=== PATIENT | female | born 1995 | race Caucasian/White ===

== ENCOUNTER 2016-12-15 13:31 | Observation (INO) | payer MEDICAID, OTHER ==
[2016-12-15] MEDS ORDERED: Lactated Ringers 1,000 ML IV ONE (14:17)
[2016-12-15] MEDS ORDERED: BRETHINE 1 MG/ML SQ ONE (14:18)
[2016-12-15 18:56] VITALS: BP 153/71; PULSE 112
--- NOTE | 2016-12-16 09:07 | XRAY ---
Indication: Difficulty obtaining heart tones. 2-dimensional OB ultrasound performed. Comparison: November 01, 2016. Again there is a single viable intrauterine currently in cephalic presentation. Normal four-chamber heart with heart rate 146 bpm. heart rate demonstrates intermittent missed beat. Normal three-vessel cord and cord insertion. Visualized head, spine, stomach, kidneys, and bladder again appear unremarkable. Placenta is again posterior without abruption/previa. Cervical length measures 4.1 cm. BPD measures 7.09 cm corresponding to 28 weeks 3 days. HC measures 27.32 cm corresponding to 29 weeks 6 days. AC measures 24.10 cm corresponding to 28 weeks 3 days. FL measures 5.66 cm corresponding to 29 weeks 5 days. PRMEA is 15.2 cm. Impression: Again single viable intrauterine with mean gestational age of 29 weeks 1 day. Normal progression in . heart rate is 146 bpm with intermittent missed beat. Comment: Preliminary report was given to the ordering clinician.
--- NOTE | 2016-12-16 09:08 | XRAY ---
Indication: Difficulty obtaining heart tones. arrhythmia. well-being. Two-dimensional ultrasound biophysical profile study was performed. Comparison: None There is a single intrauterine viable with heart rate 146 bpm. 4 quadrant PREMA is 15.2 cm. Largest pocket 6 cm. 2 points given for breathing movements, movements, tone, and qualitative amniotic fluid volume. Impression: Total biophysical profile score is 8 out of 8. Comment: Preliminary report was given.
== END 2016-12-15 18:55 | disposition home or self-care (01) ==
LOC: OB 13:31
PROVIDERS: ADMIT Family Medicine; ATTEND Family Medicine
DX: Z34.83 Encounter for supervision of other normal pregnancy, third trimester (principal)
CPT/HCPCS: 76805; 76818; 82731; 96372; G0378

== ENCOUNTER 2016-12-26 16:48 | Observation (INO) | payer MEDICAID, OTHER ==
[2016-12-26 18:04] LABS: COMPLETE URINE MICROSCOPIC? YES; Collection Type CLEAN CATCH
[2016-12-26 18:05] LABS: Bacteria FEW /HPF (NEGATIVE); Epithelial Cells MANY /HPF (FEW); WBC 15-25 /HPF (0-5)
[2016-12-26] MEDS ORDERED: Lactated Ringers 1,000 ML IV ONE ×2 (18:17→18:23)
[2016-12-26] MEDS ORDERED: ROCEPHIN 1 Gm-D5w 50 ml Bag** 1 G/50 ML IVPB IV SCH (18:30)
[2016-12-26 19:42] LABS: Mean Cell Volume 86.3 fl (78-100); Mean Platelet Volume 10.7 fl (6-9.5); Platelet Count 334 K/mm3 (150-450); Red Blood Count 3.79 M/mm3 (4.1-5.4); Red Cell Distribution Width 14.7 % (11.5-14.0); White Blood Count 14.7 K/mm3 (4.0-10.5)
[2016-12-26 19:43] LABS: Mean Corpuscular Hemoglobin 27.9 pg (26-32)
[2016-12-26 19:44] VITALS: BP 117/52; PULSE 90
[2016-12-26 20:01] LABS: ALBUMIN 2.6 g/dL (3.4-5.0); ALKALINE PHOSPHATASE 177 U/L (46-116); ANION GAP 15.4 MEQ/L (5-15); BILIRUBIN,TOTAL 0.5 mg/dL (0.2-1.0); BLOOD UREA NITROGEN 8 mg/dL (9-20); CHLORIDE 101 mEq/L (98-107); Carbon Dioxide 24.8 mEq/L (21-32); Glucose 78 MG/DL (70-110); Potassium 3.4 mEq/L (3.5-5.1); SGOT/AST 15 U/L (15-37); SODIUM 138 mEq/L (136-145); Total Protein 7.4 gm/dL (6.4-8.2)
[2016-12-26 20:13] LABS: SGPT/ALT 12 U/L (12-78)
[2016-12-26 21:10] LABS: Total Cells Counted 100
[2016-12-26 21:11] LABS: ANISOCYTOSIS 1+; Platelet Estimate NORMAL (NORMAL)
== END 2016-12-26 21:05 | disposition home or self-care (01) ==
LOC: MED SURG 16:48
PROVIDERS: ADMIT Family Medicine; ATTEND Family Medicine
DX: Z34.83 Encounter for supervision of other normal pregnancy, third trimester (principal)
CPT/HCPCS: 36415; 80053; 80307; 81000; 85025; 87077; 87086; 87186; G0378; J0696

== ENCOUNTER 2017-01-23 14:40 | Observation (INO) | payer OTHER, MEDICAID ==
[2017-01-23] MEDS ORDERED: OMNIPEN 2 GM IV ONE ×2 (14:57→15:40)
[2017-01-23 15:18] VITALS: BP 145/83; PULSE 108
[2017-01-23] MEDS ORDERED: OMNIPEN 2 GM / NACL 100ML 100 ML IV ONE (15:39)
[2017-01-23] MEDS ORDERED: ERYTHROMYCIN LACTOBIONATE IV SCH (16:00)
[2017-01-23] MEDS ORDERED: SODIUM CHLORIDE IV SCH (16:00)
[2017-01-23] MEDS ORDERED: Celestone Soluspan 6MG/ML IM ONE (16:17)
--- NOTE | 2017-01-23 16:28 | XRAY ---
Indication: labor. Evaluate lie and PREMA. Limited OB ultrasound demonstrates single intrauterine in breech presentation with heart rate 156 bpm. Four-quadrant PREMA is 2.7 cm, previously 15.2 cm on December 15, 2016.
[2017-01-23 17:06] LABS: BASOPHIL % 0.2 % (0.0-0.4); Eosinophil % 0.5 % (0.00-5.0); Granulocytes % 78.5 % (36.0-66.0); Lymphocytes % 14.7 % (24.0-44.0); Mean Cell Volume 86.3 fl (78-100); Mean Corpuscular Hemoglobin 27.8 pg (26-32); Mean Platelet Volume 11.1 fl (6-9.5); Monocytes % 6.1 % (0.0-12.0); Platelet Count 349 K/mm3 (150-450); Red Blood Count 3.88 M/mm3 (4.1-5.4); Red Cell Distribution Width 14.9 % (11.5-14.0); White Blood Count 12.1 K/mm3 (4.0-10.5)
[2017-01-23 17:47] LABS: ALBUMIN 2.3 g/dL (3.4-5.0); ALKALINE PHOSPHATASE 218 U/L (46-116); ANION GAP 16.2 MEQ/L (5-15); BILIRUBIN,TOTAL 0.2 mg/dL (0.2-1.0); BLOOD UREA NITROGEN 11 mg/dL (9-20); CHLORIDE 104 mEq/L (98-107); Carbon Dioxide 22.9 mEq/L (21-32); Glucose 94 MG/DL (70-110); Potassium 3.9 mEq/L (3.5-5.1); SGOT/AST 12 U/L (15-37); SGPT/ALT 9 U/L (12-78); SODIUM 139 mEq/L (136-145); Total Protein 7.2 gm/dL (6.4-8.2)
== END 2017-01-23 17:45 | disposition home or self-care (01) ==
LOC: OB 14:40
PROVIDERS: ADMIT Family Medicine; ATTEND Family Medicine
DX: Z34.83 Encounter for supervision of other normal pregnancy, third trimester (principal)
CPT/HCPCS: 36415; 76815; 80053; 80307; 85025; 96372; G0378; J0290; J0702

== ENCOUNTER 2017-04-14 18:43 | Emergency (ER) | payer OTHER, MEDICAID ==
[2017-04-14] MEDS ORDERED: TORAdol 30 mg Injection IM ONE (19:09)
[2017-04-14] MEDS ORDERED: Cyclobenzaprine 10 MG PO ONE (19:10)
[2017-04-14] MEDS ORDERED: TORAdol 30 mg Injection ONE (19:12)
[2017-04-14] MEDS ORDERED: Cyclobenzaprine 10 MG ONE (19:12)
--- NOTE | 2017-04-14 19:15 | ERPHSYRPT ---
- History of Present Illness Time Seen by Provider: 04/14/17 19:10 Source: patient Exam Limitations: no limitations Physician History: 21 y/o female comes to the ER with complaints of lower back pain that started today after trying to lift her daughter. Since then patient has been having severe lower back pain with stiffness. Pt describes the pain as sharp, constant , worse with movement, 9/10 and not relieved by tylenol. Pt denies any leg weakness or bowel or urinary incontinence. Timing/Duration: today Method of Injury: bending Quality: sharp Back Pain Location: lumbar spine Severity of Pain-Max: severe Severity of Pain-Current: severe Modifying Factors: Improves With: nothing Allergies/Adverse Reactions: No Known Drug Allergies Allergy (Verified 04/14/17 19:21) Home Medications: Control 04/14/17 [History] Hx Tetanus, Diphtheria Vaccination/Date Given: Yes (UP TO DATE) Hx Influenza Vaccination/Date Given: No Hx Pneumococcal Vaccination/Date Given: No - Review of Systems Constitutional: No Fever, No Chills Eyes: No Symptoms Ears, Nose, & Throat: No Symptoms Respiratory: No Cough, No Dyspnea Cardiac: No Chest Pain, No Edema, No Syncope Abdominal/Gastrointestinal: No Abdominal Pain, No Nausea, No Vomiting, No Diarrhea Genitourinary Symptoms: No Dysuria Musculoskeletal: Back Pain, No Neck Pain Skin: No Rash Neurological: No Dizziness, No Focal Weakness, No Sensory Changes Psychological: No Symptoms Endocrine: No Symptoms All Other Systems: Reviewed and Negative - Past Medical History Pertinent Past Medical History: No Neurological History: No Pertinent History Cardiac History: No Pertinent History Respiratory History: No Pertinent History Musculoskeletal History: No Pertinent History GI Medical History: No Pertinent History History: Other Female Reproductive Disorders: Other Other Medical History: double uterus - Past Surgical History Past Surgical History: Yes Musculoskeletal: Orthopedic Surgery Female Surgical History: Other Other Surgical History: vaginal surgery-septum, knee surgery - Social History Smoking Status: Never smoker Exposure to second hand smoke: No Drug Use: none Patient Lives Alone: No - Female History Hx Now: No - Nursing Vital Signs Nursing Vital Signs: Initial Vital Signs Temperature 97.8 F 04/14/17 19:11 Pulse Rate 88 04/14/17 19:11 Respiratory Rate 18 04/14/17 19:11 Blood Pressure 131/72 04/14/17 19:11 O2 Sat by Pulse Oximetry 100 04/14/17 19:11 Pain Scale Pain Intensity [Lower Back] 9 Pain Intensity 7 - Physical Exam General Appearance: moderate distress, alert Eye Exam: PERRL/EOMI, eyes nml inspection Neck Exam: normal inspection, non-tender, supple, full range of motion, No meningismus, No midline tenderness Respiratory Exam: normal breath sounds, lungs clear, No respiratory distress Cardiovascular Exam: regular rate/rhythm, normal heart sounds Gastrointestinal Exam: soft, No tenderness, No mass Back Exam: decreased range of motion, muscle spasm, No normal range of motion Extremity Exam: normal inspection, normal range of motion, No calf tenderness, No pedal edema Neurologic Exam: alert, oriented x 3, cooperative, cardiology tech II-XII nml as tested, normal mood/affect, nml station & gait, sensation nml, No motor deficits Skin Exam: normal color, warm, dry, No rash Ordered Tests: Medication Summary Discontinued Medications Generic Name Dose Route Start Last Admin Trade Name Freq PRN Reason Stop Dose Admin Cyclobenzaprine HCl 10 mg 04/14/17 19:10 04/14/17 19:14 Cyclobenzaprine 10 Mg PO 04/14/17 19:11 10 mg STAT ONE Administration Cyclobenzaprine HCl Confirm 04/14/17 19:12 Cyclobenzaprine 10 Mg Administered 04/14/17 19:13 Dose 10 mg .ROUTE .STK-MED ONE Ketorolac Tromethamine 60 mg 04/14/17 19:09 04/14/17 19:14 Toradol 30 Mg Injection IM 04/14/17 19:10 60 mg STAT ONE Administration Ketorolac Tromethamine Confirm 04/14/17 19:12 Toradol 30 Mg Injection Administered 04/14/17 19:13 Dose 60 mg .ROUTE .STK-MED ONE - Progress Progress: improved Progress Note: 04/14/17 20:17 Pt feels better after receiving toradol and flexeril. Pt still having pain and will be d/c home on toradol, flexeril and norco for back spasm - Departure Time of Disposition: 20:18 Departure Disposition: Home Clinical Impression: Back spasm Condition: Stable Critical Care Time: No Referrals: ANAM ANDERSON MD [Primary Care Provider] - Instructions: Low Back Pain Additional Instructions: Follow up with your primary care doctor if no improvement. Prescriptions: Cyclobenzaprine HCl [Flexeril] 10 mg PO Q8H PRN PRN #15 tablet PRN Reason: spasm Hydrocodone/Acetaminophen [Skippers 5-325 Tablet] 1 each PO QID PRN #10 tablet PRN Reason: Severe Pain Ketorolac Tromethamine [Toradol] 10 mg PO QID PRN #20 tablet PRN Reason: Mild To Moderate Pain
[2017-04-14 19:18] VITALS: O2SAT 100
[2017-04-14] MEDS ORDERED: NORCO 5/325 MG PO ONE (20:17)
[2017-04-14] MEDS ORDERED: NORCO 5/325 MG ONE (20:19)
[2017-04-14 20:40] VITALS: BP 119/70; PULSE 75
== END 2017-04-14 20:40 | disposition home or self-care (01) ==
LOC: ED 18:43
DX: M62.830 Muscle spasm of back (principal); X50.0XXA Overexertion from strenuous movement or load, initial encounter; M54.5 Low back pain
CPT/HCPCS: 96372; 99284; J1885; A9270-GY

== ENCOUNTER 2017-07-01 21:09 | Emergency (ER) | payer OTHER ==
--- NOTE | 2017-07-01 21:33 | ERPHSYRPT ---
- History of Present Illness Time Seen by Provider: 07/01/17 21:27 Historian: patient Exam Limitations: no limitations Patient Subjective Stated Complaint: PT states "For the past few days I have had pain on and off in my right side and into my stomach. The pain is getting worse and worse." Triage Nursing Assessment: PT alert and oriented X 3, skin pwd. Pt ambulates with an upright steady gait, able to speak in full clear sentences. Pt is holding her right flank. Physician History: The patient is a at 9-10 weeks complaining of right flank pain with radiation into the abdomen on the right side. This pain began 3 days ago and was mild and intermittent later today the pain became severe and constant. The patient has urinary urgency and frequency. She denies fever or chills. She did not take Tylenol or any analgesics. Timing/Duration: day(s) (3) Activities at Onset: none Quality: sharpness Abdominal Pain Onset Location: flank (right) Pain Radiation: RLQ Severity of Pain-Max: moderate Severity of Pain-Current: moderate Modifying Factors: Improves With: nothing Associated Symptoms: denies symptoms Previous symptoms: same symptoms as today Allergies/Adverse Reactions: No Known Drug Allergies Allergy (Verified 04/14/17 19:21) Home Medications: Vits W-Ca,Fe,FA(<1Mg) [] 1 each PO DAILY 07/01/17 [History] Hx Tetanus, Diphtheria Vaccination/Date Given: Yes Hx Influenza Vaccination/Date Given: No Hx Pneumococcal Vaccination/Date Given: No Immunizations Up to Date: Yes - Review of Systems Constitutional: No Fever, No Chills Eyes: No Symptoms Ears, Nose, & Throat: No Symptoms Respiratory: No Cough, No Dyspnea Cardiac: No Chest Pain, No Edema, No Syncope Abdominal/Gastrointestinal: Abdominal Pain Genitourinary Symptoms: Dysuria, Urgency, Flank Pain Musculoskeletal: No Back Pain, No Neck Pain Skin: No Rash Neurological: No Dizziness, No Focal Weakness, No Sensory Changes Psychological: No Symptoms Endocrine: No Symptoms Hematologic/Lymphatic: No Symptoms Immunological/Allergic: No Symptoms All Other Systems: Reviewed and Negative - Past Medical History Pertinent Past Medical History: No Neurological History: No Pertinent History ENT History: No Pertinent History Cardiac History: No Pertinent History Respiratory History: No Pertinent History Endocrine Medical History: No Pertinent History Musculoskeletal History: No Pertinent History GI Medical History: No Pertinent History History: Other Female Reproductive Disorders: Other Other Medical History: double uterus - Past Surgical History Past Surgical History: Yes Musculoskeletal: Orthopedic Surgery Female Surgical History: Other Other Surgical History: vaginal surgery-septum, knee surgery - Social History Smoking Status: Never smoker Exposure to second hand smoke: No Drug Use: none Patient Lives Alone: No - Female History Hx Last Menstrual Period: 04/18/2017 Hx Now: No - Nursing Vital Signs Nursing Vital Signs: Initial Vital Signs Temperature 98.4 F 07/01/17 21:12 Pulse Rate 82 07/01/17 21:12 Respiratory Rate 18 07/01/17 21:12 Blood Pressure 144/68 07/01/17 21:12 O2 Sat by Pulse Oximetry 97 07/01/17 21:12 Pain Scale Pain Intensity 5 - Physical Exam General Appearance: mild distress Eye Exam: PERRL/EOMI, eyes nml inspection Ears, Nose, Throat Exam: normal ENT inspection, pharynx normal, moist mucous membranes Neck Exam: normal inspection, non-tender, supple, full range of motion Respiratory Exam: normal breath sounds, lungs clear, No respiratory distress Cardiovascular Exam: regular rate/rhythm, normal heart sounds Gastrointestinal/Abdomen Exam: soft, No tenderness, No mass Pelvic Exam: not done Rectal Exam: not done Back Exam: normal inspection, normal range of motion, No CVA tenderness, No vertebral tenderness Extremity Exam: normal inspection, normal range of motion, pelvis stable Neurologic Exam: alert, oriented x 3, cooperative, normal mood/affect, nml cerebellar function, sensation nml, No motor deficits Skin Exam: normal color, warm, dry SpO2 Interpretation: normal SpO2: 97 Oxygen Delivery: Room Air Ordered Tests: Active Orders 24 hr Category Date Time Status IV Insertion STAT Care 07/01/17 21:34 Active CBC W DIFF Stat Lab 07/01/17 21:30 Completed CMP Stat Lab 07/01/17 21:30 Completed CULTURE,URINE Stat Lab 07/01/17 21:20 Received HCG,QUALITATIVE URINE Stat Lab 07/01/17 21:20 Completed LIPASE Stat Lab 07/01/17 21:30 Completed UA W/ MICROSCOPIC Stat Lab 07/01/17 21:20 Completed Medication Summary Discontinued Medications Generic Name Dose Route Start Last Admin Trade Name Freq PRN Reason Stop Dose Admin Acetaminophen 975 mg 07/01/17 21:34 07/01/17 21:42 Tylenol 325 Mg PO 07/01/17 21:35 975 mg STAT ONE Administration Acetaminophen Confirm 07/01/17 21:40 Tylenol 325 Mg Administered 07/01/17 21:41 Dose 975 mg .ROUTE .STK-MED ONE Sodium Chloride 1,000 mls @ 999 mls/hr 07/01/17 21:34 07/01/17 21:41 Sodium Chloride 0.9% 1000 Ml IV 07/01/17 22:34 999 mls/hr .Q1H1M STA Administration Sodium Chloride Confirm 07/01/17 21:40 Sodium Chloride 0.9% 1000 Ml Administered 07/01/17 21:41 Dose 1,000 mls @ ud .ROUTE .STK-MED ONE Potassium Chloride 20 meq 07/01/17 22:03 07/01/17 22:06 Klor Con 10 Meq PO 07/01/17 22:04 20 meq STAT ONE Administration Potassium Chloride Confirm 07/01/17 22:06 Klor Con 10 Meq Administered 07/01/17 22:07 Dose 20 meq PO .STK-MED ONE Lab/Rad Data: Laboratory Result Diagrams 07/01/17 21:30 07/01/17 21:30 Laboratory Results 07/01/17 07/01/17 07/01/17 Range/Units 21:30 21:30 21:20 WBC 10.1 (4.0-10.5) K/mm3 RBC 4.35 (4.1-5.4) M/mm3 Hgb 12.0 (12.0-16.0) gm/dl Hct 36.4 (35-47) % MCV 83.7 (78-100) fl MCH 27.6 (26-32) pg MCHC 33.0 (32-36) g/dl RDW 14.4 H (11.5-14.0) % Plt Count 350 (150-450) K/mm3 MPV 10.7 H (6-9.5) fl Gran % 66.6 H (36.0-66.0) % Lymphocytes % 25.8 (24.0-44.0) % Monocytes % 6.7 (0.0-12.0) % Eosinophils % 0.7 (0.00-5.0) % Basophils % 0.2 (0.0-0.4) % Basophils # 0.02 (0-0.4) Sodium 136 (136-145) mEq/L Potassium 3.2 L (3.5-5.1) mEq/L Chloride 98 (98-107) mEq/L Carbon Dioxide 24.9 (21-32) mEq/L Anion Gap 16.2 H (5-15) MEQ/L BUN 9 (9-20) mg/dL Creatinine 0.74 (0.55-1.30) mg/dl Estimated GFR > 60 ML/MIN Glucose 92 (70-110) MG/DL Calcium 9.5 (8.5-10.1) mg/dL Total Bilirubin 0.60 (0.2-1.0) mg/dL AST 12 L (15-37) U/L ALT 17 (12-78) U/L Alkaline Phosphatase 116 (46-116) U/L Serum Total Protein 7.9 (6.4-8.2) gm/dL Albumin 3.5 (3.4-5.0) g/dL Lipase 94 (73-393) U/L Ur Collection Type Urine Color (YELLOW) Urine Appearance (CLEAR) Urine pH (5-6) Ur Specific [place] (1.005-1.025) Urine Protein (Negative) Urine Ketones (NEGATIVE) Urine Blood (0-5) Blue/ul Urine Nitrite (NEGATIVE) Urine Bilirubin (NEGATIVE) Urine Urobilinogen (0-1) mg/dL Ur Leukocyte Esterase (NEGATIVE) Urine Microscopic RBC (0-2) /HPF Urine Microscopic WBC (0-5) /HPF Ur Epithelial Cells (FEW) /HPF Urine Bacteria (NEGATIVE) /HPF Urine Mucus (NEGATIVE) /HPF Urine Culture Reflexed (NO) Urine Glucose (NEGATIVE) mg/dL Urine HCG, Qual POSITIVE (Negative) Specimen Received 07/01/17 Range/Units 21:20 WBC (4.0-10.5) K/mm3 RBC (4.1-5.4) M/mm3 Hgb (12.0-16.0) gm/dl Hct (35-47) % MCV (78-100) fl MCH (26-32) pg MCHC (32-36) g/dl RDW (11.5-14.0) % Plt Count (150-450) K/mm3 MPV (6-9.5) fl Gran % (36.0-66.0) % Lymphocytes % (24.0-44.0) % Monocytes % (0.0-12.0) % Eosinophils % (0.00-5.0) % Basophils % (0.0-0.4) % Basophils # (0-0.4) Sodium (136-145) mEq/L Potassium (3.5-5.1) mEq/L Chloride (98-107) mEq/L Carbon Dioxide (21-32) mEq/L Anion Gap (5-15) MEQ/L BUN (9-20) mg/dL Creatinine (0.55-1.30) mg/dl Estimated GFR ML/MIN Glucose (70-110) MG/DL Calcium (8.5-10.1) mg/dL Total Bilirubin (0.2-1.0) mg/dL AST (15-37) U/L ALT (12-78) U/L Alkaline Phosphatase (46-116) U/L Serum Total Protein (6.4-8.2) gm/dL Albumin (3.4-5.0) g/dL Lipase (73-393) U/L Ur Collection Type CLEAN CATCH Urine Color YELLOW (YELLOW) Urine Appearance SLIGHTLY CLOUDY (CLEAR) Urine pH 5.5 (5-6) Ur Specific [place] 1.025 (1.005-1.025) Urine Protein 100 (Negative) Urine Ketones MODERATE (NEGATIVE) Urine Blood 250 (0-5) Blue/ul Urine Nitrite POSITIVE (NEGATIVE) Urine Bilirubin NEGATIVE (NEGATIVE) Urine Urobilinogen NORMAL (0-1) mg/dL Ur Leukocyte Esterase 1+ (NEGATIVE) Urine Microscopic RBC 10-15 (0-2) /HPF Urine Microscopic WBC 5-10 (0-5) /HPF Ur Epithelial Cells MANY (FEW) /HPF Urine Bacteria MANY (NEGATIVE) /HPF Urine Mucus SLIGHT (NEGATIVE) /HPF Urine Culture Reflexed YES (NO) Urine Glucose NEGATIVE (NEGATIVE) mg/dL Urine HCG, Qual (Negative) Specimen Received 07/01/17:0 - Progress Progress: improved Counseled pt/family regarding: lab results, diagnosis, need for follow-up - Departure Time of Disposition: 22:44 Departure Disposition: Home Clinical Impression: UTI (urinary tract infection), Hypokalemia Condition: Stable Critical Care Time: No Referrals: SLIME GALINDO NP [Primary Care Provider] - Additional Instructions: You have a UTI and low potassium. You were given Toradol 30 mg and fluids by IV in the ER. You were given potassium 20 mEq and Tylenol 975 mg in the ER. Take Macrobid 100 mg twice a day for 7 days. Take tylenol as needed. Follow-up on Monday. Prescriptions: Nitrofurantoin Macro 100 mg [Macrobid 100MG Capsule] 100 mg PO BID #14 capsule
[2017-07-01] MEDS ORDERED: Sodium Chloride 0.9% 1000 ML 1,000 ML IV STA (21:34)
[2017-07-01] MEDS ORDERED: TYLENOL 325 MG PO ONE (21:34)
[2017-07-01] MEDS ORDERED: Sodium Chloride 0.9% 1000 ML 1,000 ML ONE (21:40)
[2017-07-01] MEDS ORDERED: TYLENOL 325 MG ONE (21:40)
[2017-07-01 21:45] LABS: BASOPHIL % 0.2 % (0.0-0.4); Eosinophil % 0.7 % (0.00-5.0); Granulocytes % 66.6 % (36.0-66.0); Lymphocytes % 25.8 % (24.0-44.0); Mean Cell Volume 83.7 fl (78-100); Mean Corpuscular Hemoglobin 27.6 pg (26-32); Mean Platelet Volume 10.7 fl (6-9.5); Monocytes % 6.7 % (0.0-12.0); Platelet Count 350 K/mm3 (150-450); Red Blood Count 4.35 M/mm3 (4.1-5.4); Red Cell Distribution Width 14.4 % (11.5-14.0); White Blood Count 10.1 K/mm3 (4.0-10.5)
[2017-07-01 21:51] LABS: Collection Type CLEAN CATCH; Leukocyte Esterase 1+ (NEGATIVE)
[2017-07-01 21:52] LABS: ADD URINE CULTURE? YES (NO); Bacteria MANY /HPF (NEGATIVE); Bilirubin NEGATIVE (NEGATIVE); Blood 250 Ery/ul (0-5); COMPLETE URINE MICROSCOPIC? YES; Epithelial Cells MANY /HPF (FEW); Glucose NEGATIVE (NEGATIVE); Mucus SLIGHT /HPF (NEGATIVE)
[2017-07-01 21:59] LABS: ALBUMIN 3.5 g/dL (3.4-5.0); ALKALINE PHOSPHATASE 116 U/L (46-116); ANION GAP 16.2 MEQ/L (5-15); BLOOD UREA NITROGEN 9 mg/dL (9-20); CHLORIDE 98 mEq/L (98-107); Carbon Dioxide 24.9 mEq/L (21-32); Glucose 92 MG/DL (70-110); LIPASE 94 U/L (73-393); Potassium 3.2 mEq/L (3.5-5.1); SGOT/AST 12 U/L (15-37); SGPT/ALT 17 U/L (12-78); SODIUM 136 mEq/L (136-145); Total Protein 7.9 gm/dL (6.4-8.2)
[2017-07-01] MEDS ORDERED: Klor Con 10 MEQ PO ONE ×2 (22:03→22:06)
[2017-07-01] MEDS ORDERED: Macrobid 100MG Capsule PO ONE (22:45)
[2017-07-01] MEDS ORDERED: Macrobid 100MG Capsule ONE (22:47)
[2017-07-01 22:59] VITALS: BP 129/70; PULSE 80; O2SAT 100
== END 2017-07-01 22:59 | disposition home or self-care (01) ==
LOC: ED 21:09
DX: N39.0 Urinary tract infection, site not specified (principal); E87.6 Hypokalemia; R10.9 Unspecified abdominal pain; R10.31 Right lower quadrant pain
CPT/HCPCS: 36000; 36415; 80053; 81000; 83690; 84703; 85025; 87077; 87086; 87186; 96360; 99284; A9270-GY